=== PATIENT | female | born 1975 | race Two or more races ===

== ENCOUNTER 2017-06-07 05:31 | Day surgery (SDC) | payer MEDICAID ==
[~2017-06-07] VITALS: Ht 162.6 cm; Wt 71.5 kg
[2017-06-07] VITALS (13 sets, daily range): BP systolic 105–124; BP diastolic 53–76; PULSE 80–102; RESP 10–23; Ht 162.6 cm; Wt 71.5 kg
--- NOTE | 2017-06-07 06:38 | RADRPT ---
PROCEDURE: Chest. CLINICAL INDICATION: Preop evaluation. TECHNIQUE: Single frontal view of the chest was obtained. COMPARISON: None. FINDINGS: The cardiac silhouette is within normal limits. The aortic arch is unremarkable. There is no focal consolidation, vascular congestion or pleural effusion. There is no pneumothorax. IMPRESSION: No evidence for active cardiopulmonary disease. .Geovanni Martinez MD, MD Date Time Electronically viewed and signed by .Geovanni Martinez MD, on 06/07/2017 06:38 .T/
[2017-06-07 06:45] LABS: BASOPHILS % 0.5 % (0.0-2.0); EOSINOPHILS # 0.1 10^3/ul (0.0-0.5); EOSINOPHILS % 1.8 % (0.0-7.0); HEMATOCRIT 38.5 % (37.0-47.0); HEMOGLOBIN 13.1 g/dl (12.0-16.0); LYMPHOCYTES % 33.9 % (15.0-51.0); MEAN CORPUSCULAR HEMOGLOBIN 30.3 pg (29.0-33.0); MEAN CORPUSCULAR VOLUME 88.9 fl (82.0-101.0); MEAN PLATELET VOLUME 11.7 fl (7.4-10.4); MONOCYTE # 0.4 10^3/ul (0.3-0.9); MONOCYTES % 7.2 % (0.0-11.0); NEUTROPHIL # 3.4 10^3/ul (1.6-7.5); NEUTROPHILS % 56.4 % (39.0-77.0); PLATELET COUNT 292 10^3/UL (140-415); RED BLOOD COUNT 4.33 10^6/ul (4.20-5.40); RED CELL DISTRIBUTION WIDTH 12.5 % (11.5-14.5)
[2017-06-07] MEDS ORDERED: BUPIVACAINE 0.5%/EPI (SDV) 30 ML INJ ONE (07:02)
[2017-06-07 07:04] LABS: INR 0.99; PROTIME 13.2 Sec (11.9-14.9)
[2017-06-07 07:08] LABS: PARTIAL THROMBOPLASTIN TIME 35.7 Sec (25.0-35.0)
[2017-06-07] MEDS ORDERED: FENTAnyl 50 MCG/ML VIAL ONE (07:18)
[2017-06-07] MEDS ORDERED: LIDOCAINE 2% (SDV) 5 ML INJ ONE (07:18)
[2017-06-07] MEDS ORDERED: CEFAZOLIN 1 GM INJ ONE (07:18)
[2017-06-07] MEDS ORDERED: ROCURONIUM 50 MG INJ ONE (07:18)
[2017-06-07] MEDS ORDERED: GLYCOPYRROLATE 0.4 MG INJ ONE (07:18)
[2017-06-07] MEDS ORDERED: MIDAZOLAM 1 MG/ML 2 ML INJ ONE (07:18)
[2017-06-07] MEDS ORDERED: PROPOFOL 20 ML ONE (07:18)
[2017-06-07] MEDS ORDERED: ONDANSETRON 4 MG INJ ONE (07:25)
[2017-06-07] MEDS ORDERED: METOCLOPRAMIDE 10 MG INJ ONE (07:25)
[2017-06-07] MEDS ORDERED: DEXAMETHASONE 4 MG/ML 1 ML INJ ONE (07:26)
[2017-06-07] MEDS ORDERED: FAMOTIDINE 20 MG INJ ONE (07:26)
[2017-06-07] MEDS ORDERED: ALBUTEROL 0.5% (NEB) 2.5 MG/0.5 ML AMP ONE (07:30)
[2017-06-07] MEDS ORDERED: OXYCODONE/ACETAMINOPHEN (5/325) TAB PO PRN ×2 (08:00)
[2017-06-07] MEDS ORDERED: DIPHENHYDRAMINE 50 MG INJ IV PRN (08:00)
[2017-06-07] MEDS ORDERED: MEPERIDINE 25 MG INJ IV PRN (08:00)
[2017-06-07] MEDS ORDERED: METOCLOPRAMIDE 10 MG INJ IV PRN (08:00)
[2017-06-07] MEDS ORDERED: ONDANSETRON 4 MG INJ IV PRN (08:00)
[2017-06-07] MEDS ORDERED: ALBUTEROL 0.083% (NEB) 2.5 MG/3 ML AMP HHN PRN (08:00)
[2017-06-07] MEDS ORDERED: FENTAnyl 50 MCG/ML VIAL IV PRN ×2 (08:00)
[2017-06-07] MEDS ORDERED: LABETALOL HCL 20MG INJ ONE (08:17)
[2017-06-07] MEDS ORDERED: SUGAMMADEX SODIUM 200 MG/2 ML VIAL IV ONE (08:27)
--- NOTE | 2017-06-07 08:59 | OPR ---
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 Normal uterus. CONSENT: Please see my preop H and P consent in the office for the consent process. DESCRIPTION OF PROCEDURE: She was taken to operating room and general anesthesia was induced. She was prepped and draped in the usual sterile fashion in dorsal lithotomy position. Surgical time-out was done. Anterior lip of the cervix was grasped using a single-tooth tenaculum, and a HUMI was inserted in normal fashion. The tenaculum was removed. There was no bleeding from the cervix. The patient already had a Gonzalez catheter as well. Gloves were changed. A 5 mm incision was developed inside the umbilicus. A blunt trocar was inserted in the normal fashion. Intraperitoneal position was confirmed using the laparoscope. Pneumoperitoneum was obtained. The patient was placed in Trendelenburg position. A second trocar was inserted under direct visualization of the laparoscope at the pubic hairline in the midline. A 5 cm mid ampullary region of the right tube was coagulated. Complete desiccation of the entire diameter of tube was visualized. The middle of the coagulated portion was cut. There was no bleeding. Same procedure was done on the contralateral side. All instruments removed under direct visualization of the laparoscope after pneumoperitoneum was released. There was no bleeding. Skin closed using 4-0 Monocryl. Then 10 mL 0.25% Marcaine with epinephrine was injected at the incision sites. HUMI was removed. There was no bleeding from the vagina. Patient tolerated the procedure well. DWAIN FLORES MD Jun 07, 2017 08:59
[2017-06-07] MEDS: FENTAnyl 50 MCG/ML VIAL IV PRN ×2 (09:20→09:38)
[2017-06-07] MEDS ORDERED: CEFAZOLIN 2 GM/50 ML (PMX) 50 ML IVPB SCH (12:00)
[2017-06-07] MEDS ORDERED: LACTATED RINGER'S 1,000 ML IV* SCH (12:00)
--- NOTE | 2017-06-07 13:17 | RADRPT ---
Vent Rate: 73 bpm RR Interval: 0 msec [place] Interval: 154 msec QRS Duration: 80 msec QT Interval: 390 msec QTC Interval: 429 msec P-R-T [place]: 45 - 55 - 47 degrees Normal sinus rhythm Normal ECG Electronically Signed By: Vahid Baker [id number]
== END 2017-06-07 10:58 | disposition home or self-care (01) ==
LOC: SDS 05:31
PROVIDERS: ATTEND Specialist
DX: Z30.2 Encounter for sterilization (principal); J45.909 Unspecified asthma, uncomplicated
CPT/HCPCS: 58670; 71010; 85025; 85610; 85730; 93005; J0690; J1100; J2250; J2405; J2765; J3010; Z7512; Z7610